=== PATIENT | male | born 1955 | race Caucasian/White ===

== ENCOUNTER 2016-09-09 05:38 | Day surgery (SDC) | payer BC ==
[~2016-09-09] VITALS: Ht 198.1 cm; Wt 50.4 kg
[~2016-09-09 05:38] MED LIST: FLOMAX 0.40.4 MG/CAP PO
[2016-09-09 06:12] VITALS: BP 124/77; PULSE 78; TEMP 97.4
[2016-09-09 09:00] VITALS: BP 138/91; PULSE 64; TEMP 97.1
[2016-09-09 10:25] VITALS: BP 179/89; PULSE 94
== END 2016-09-09 11:15 | disposition home or self-care (01) ==
LOC: SDCO 05:38
DX: N21.0 Calculus in bladder (principal)
CPT/HCPCS: J0690; J1100; J2405; J2704; J3010